=== PATIENT | male | born 1940 | race African-American/Black ===

== ENCOUNTER 2017-07-19 12:14 | Inpatient (IN) | payer OTHER ==
[~2017-07-19] VITALS: Ht 172.7 cm; Wt 65.0 kg
[2017-07-19] VITALS (8 sets, daily range): BP systolic 97–125; BP diastolic 64–78
[2017-07-19 12:57] LABS: microscopic required? YES; urine erythrocyte 3+ (NEGATIVE)
[2017-07-19 13:25] LABS: RED CELL DISTRIBUTION WIDTH 16.7 % (11.5-14.5)
[2017-07-19 13:26] LABS: PLATELET COUNT 459 x10^3mcL (130-400)
[2017-07-19 13:46] LABS: CALCIUM 8.5 mg/dL (8.5-10.1); CARBON DIOXIDE 30.3 mmol/L (21-32); CHLORIDE SERUM 109 mmol/L (98-107); CREATININE SERUM 2.3 mg/dL (0.7-1.3); GLUCOSE SERUM 132 mg/dL (74-106); POTASSIUM SERUM 3.9 mmol/L (3.5-5.1); SODIUM SERUM 149 mmol/L (136-145)
[2017-07-19 13:51] LABS: ALKALINE PHOSPHATASE 75 U/L (46-116); ALT/SGPT 30 U/L (16-63); AST/SGOT 58 U/L (15-37); BILIRUBIN TOTAL 0.4 mg/dL (0.20-1.00)
[2017-07-19 13:55] LABS: ALBUMIN 1.9 g/dL (3.4-5.0); TOTAL PROTEIN, SERUM 9.6 g/dL (6.4-8.2)
[2017-07-19 13:57] LABS: BAND NEUTROPHIL 4 % (0-10); BASOPHIL 0 % (0-2); METAMYELOCTE 4 % (0-2); MONOCYTE 6 % (0-7); MYELOCYTE 2 % (0-2); SEGMENTED NEUTROPHILS 59 % (37-75)
[2017-07-19 14:00] LABS: PLATELET MORPHOLOGY LARGE PLATELET SEEN; rbc morphology (normal/abnorm) NORMAL (NORMAL)
[2017-07-19 14:40] LABS: CK-MB < 0.5 ng/mL (0-3.6); CREATINE KINASE 120 U/L (39-308)
[2017-07-19] MEDS ORDERED: ASPIR LOW81 MG GT (15:00)
[2017-07-19] MEDS ORDERED: BUDESONIDE0.5 MG/2 M NEB (15:01)
[2017-07-19] MEDS ORDERED: BENADRYL ALLERG25 M1 PO (15:01)
[2017-07-19] MEDS ORDERED: CALCIUM 500+D1 EACH NG (15:04)
[2017-07-19] MEDS ORDERED: IPRATROPIUM BROM3 M2 HHN (15:05)
[2017-07-19] MEDS ORDERED: FERL GT (15:06)
[2017-07-19] MEDS ORDERED: HEP5I SC (15:06)
[2017-07-19] MEDS ORDERED: HUMALOG100 U/ML SC (15:07)
[2017-07-19] MEDS ORDERED: PREVACID30 M1 GT (15:07)
[2017-07-19] MEDS ORDERED: TYLENOL325 M1 GT (15:08)
[2017-07-19 16:43] LABS: MAGNESIUM 2.5 mg/dL (1.8-2.4); PHOSPHOROUS 5.7 mg/dL (2.5-4.9)
[2017-07-19 16:45] LABS: CHOLESTEROL/HDL RATIO 5.3
[2017-07-19 16:50] LABS: T3 TOTAL 0.56 ng/mL
[2017-07-19 17:14] LABS: FREE T4 1.3 ng/dL (0.76-1.46); FREE THYROXINE INDEX 1.8 ug/dL (1.4-4.5); T4(THYROXINE) 6.1 ug/dL (4.7-13.3)
[2017-07-20] VITALS (16 sets, daily range): BP systolic 105–123; BP diastolic 63–77
[2017-07-20 05:41] LABS: PLATELET COUNT 383 x10^3mcL (130-400)
[2017-07-20 05:46] LABS: CALCIUM 8.4 mg/dL (8.5-10.1); CARBON DIOXIDE 29.9 mmol/L (21-32); CHLORIDE SERUM 110 mmol/L (98-107); CREATININE SERUM 2.3 mg/dL (0.7-1.3); GLUCOSE SERUM 153 mg/dL (74-106); MAGNESIUM 2.1 mg/dL (1.8-2.4); PHOSPHOROUS 5.8 mg/dL (2.5-4.9); POTASSIUM SERUM 3.9 mmol/L (3.5-5.1); SODIUM SERUM 148 mmol/L (136-145)
[2017-07-20 05:54] LABS: BASOPHIL % 0 % (0-2); RED CELL DISTRIBUTION WIDTH 16.7 % (11.5-14.5)
[2017-07-21] VITALS (20 sets, daily range): BP systolic 101–122; BP diastolic 41–72
[2017-07-21 05:30] LABS: PLATELET COUNT 330 x10^3mcL (130-400)
[2017-07-21 05:56] LABS: CALCIUM 8.1 mg/dL (8.5-10.1); CARBON DIOXIDE 27.6 mmol/L (21-32); CHLORIDE SERUM 108 mmol/L (98-107); CREATININE SERUM 2.3 mg/dL (0.7-1.3); GLUCOSE SERUM 99 mg/dL (74-106); MAGNESIUM 1.9 mg/dL (1.8-2.4); PHOSPHOROUS 4.4 mg/dL (2.5-4.9); POTASSIUM SERUM 3.2 mmol/L (3.5-5.1); SODIUM SERUM 143 mmol/L (136-145)
[2017-07-21 06:16] LABS: BAND NEUTROPHIL 3 % (0-10); MONOCYTE 3 % (0-7); SEGMENTED NEUTROPHILS 83 % (37-75); rbc morphology (normal/abnorm) ABNORMAL (NORMAL)
[2017-07-21 06:18] LABS: PLATELET MORPHOLOGY PLATELETS NORMAL
[2017-07-21 14:16] LABS: BASOPHIL % 0.1 % (0-2); PLATELET COUNT 318 x10^3mcL (130-400)
[2017-07-21 14:21] LABS: RED CELL DISTRIBUTION WIDTH 16.9 % (11.5-14.5)
[2017-07-21 14:30] LABS: rbc morphology (normal/abnorm) ABNORMAL (NORMAL)
[2017-07-21 21:58] LABS: BASOPHIL % 0.3 % (0-2); PLATELET COUNT 333 x10^3mcL (130-400)
[2017-07-21 22:00] LABS: RED CELL DISTRIBUTION WIDTH 15.7 % (11.5-14.5)
[2017-07-22] VITALS (18 sets, daily range): BP systolic 113–144; BP diastolic 64–83
[2017-07-22 05:32] LABS: PLATELET COUNT 319 x10^3mcL (130-400)
[2017-07-22 05:34] LABS: BASOPHIL % 0 % (0-2); RED CELL DISTRIBUTION WIDTH 16.2 % (11.5-14.5)
[2017-07-22 05:49] LABS: CALCIUM 7.6 mg/dL (8.5-10.1); CARBON DIOXIDE 27.5 mmol/L (21-32); CHLORIDE SERUM 108 mmol/L (98-107); GLUCOSE SERUM 105 mg/dL (74-106); PHOSPHOROUS 3.6 mg/dL (2.5-4.9); POTASSIUM SERUM 3.8 mmol/L (3.5-5.1); SODIUM SERUM 142 mmol/L (136-145)
[2017-07-23] VITALS (19 sets, daily range): BP systolic 117–138; BP diastolic 63–77
[2017-07-23 05:39] LABS: PLATELET COUNT 340 x10^3mcL (130-400)
[2017-07-23 05:42] LABS: BASOPHIL % 0 % (0-2); RED CELL DISTRIBUTION WIDTH 15.9 % (11.5-14.5)
[2017-07-23 05:53] LABS: CALCIUM 7.6 mg/dL (8.5-10.1); CARBON DIOXIDE 28.6 mmol/L (21-32); CHLORIDE SERUM 110 mmol/L (98-107); CREATININE SERUM 1.7 mg/dL (0.7-1.3); GLUCOSE SERUM 92 mg/dL (74-106); MAGNESIUM 1.8 mg/dL (1.8-2.4); PHOSPHOROUS 3.3 mg/dL (2.5-4.9); POTASSIUM SERUM 4.1 mmol/L (3.5-5.1); SODIUM SERUM 142 mmol/L (136-145)
[2017-07-24] VITALS (19 sets, daily range): BP systolic 105–135; BP diastolic 63–93
[2017-07-24 05:53] LABS: BASOPHIL % 0.2 % (0-2); PLATELET COUNT 314 x10^3mcL (130-400)
[2017-07-24 06:09] LABS: CALCIUM 7.6 mg/dL (8.5-10.1); CARBON DIOXIDE 25.9 mmol/L (21-32); CHLORIDE SERUM 112 mmol/L (98-107); CREATININE SERUM 1.3 mg/dL (0.7-1.3); GLUCOSE SERUM 105 mg/dL (74-106); MAGNESIUM 1.6 mg/dL (1.8-2.4); PHOSPHOROUS 2.6 mg/dL (2.5-4.9); POTASSIUM SERUM 4.1 mmol/L (3.5-5.1); SODIUM SERUM 143 mmol/L (136-145)
[2017-07-24 15:21] LABS: BASOPHIL % 0.3 % (0-2); PLATELET COUNT 318 x10^3mcL (130-400)
[2017-07-24 16:19] LABS: RED CELL DISTRIBUTION WIDTH 16.1 % (11.5-14.5)
[2017-07-24 17:04] LABS: rbc morphology (normal/abnorm) ABNORMAL (NORMAL)
[2017-07-25] VITALS (18 sets, daily range): BP systolic 113–135; BP diastolic 64–78
[2017-07-25 05:21] LABS: BASOPHIL % 0.2 % (0-2); PLATELET COUNT 316 x10^3mcL (130-400)
[2017-07-25 05:26] LABS: RED CELL DISTRIBUTION WIDTH 16.6 % (11.5-14.5)
[2017-07-25 05:28] LABS: rbc morphology (normal/abnorm) ABNORMAL (NORMAL)
[2017-07-25 05:35] LABS: CALCIUM 7.6 mg/dL (8.5-10.1); CARBON DIOXIDE 26.5 mmol/L (21-32); CHLORIDE SERUM 116 mmol/L (98-107); CREATININE SERUM 1.1 mg/dL (0.7-1.3); GLUCOSE SERUM 97 mg/dL (74-106); MAGNESIUM 1.4 mg/dL (1.8-2.4); PHOSPHOROUS 2.4 mg/dL (2.5-4.9); POTASSIUM SERUM 3.8 mmol/L (3.5-5.1); SODIUM SERUM 146 mmol/L (136-145)
[2017-07-26] VITALS (17 sets, daily range): BP systolic 110–138; BP diastolic 57–83
[2017-07-26 05:05] LABS: BASOPHIL % 0.9 % (0-2); PLATELET COUNT 337 x10^3mcL (130-400)
[2017-07-26 05:10] LABS: CALCIUM 7.4 mg/dL (8.5-10.1); CHLORIDE SERUM 116 mmol/L (98-107); CREATININE SERUM 1.1 mg/dL (0.7-1.3); GLUCOSE SERUM 103 mg/dL (74-106); MAGNESIUM 1.6 mg/dL (1.8-2.4); PHOSPHOROUS 2.4 mg/dL (2.5-4.9); POTASSIUM SERUM 3.8 mmol/L (3.5-5.1); SODIUM SERUM 145 mmol/L (136-145)
[2017-07-26 05:20] LABS: RED CELL DISTRIBUTION WIDTH 16.8 % (11.5-14.5)
[2017-07-26 05:22] LABS: rbc morphology (normal/abnorm) ABNORMAL (NORMAL)
[2017-07-27] VITALS (19 sets, daily range): BP systolic 112–135; BP diastolic 7–78
[2017-07-27 06:00] LABS: CALCIUM 7.9 mg/dL (8.5-10.1); CARBON DIOXIDE 25.7 mmol/L (21-32); GLUCOSE SERUM 92 mg/dL (74-106); MAGNESIUM 1.8 mg/dL (1.8-2.4); PHOSPHOROUS 2.8 mg/dL (2.5-4.9)
[2017-07-27 06:07] LABS: BASOPHIL % 0.9 % (0-2); PLATELET COUNT 352 x10^3mcL (130-400)
[2017-07-27 06:11] LABS: CHLORIDE SERUM 112 mmol/L (98-107); POTASSIUM SERUM 4.1 mmol/L (3.5-5.1); SODIUM SERUM 135 mmol/L (136-145)
[2017-07-28] VITALS (19 sets, daily range): BP systolic 124–142; BP diastolic 66–94
[2017-07-28 04:35] LABS: BASOPHIL % 0.6 % (0-2); PLATELET COUNT 332 x10^3mcL (130-400)
[2017-07-28 04:45] LABS: CALCIUM 7.5 mg/dL (8.5-10.1); CARBON DIOXIDE 25.9 mmol/L (21-32); CHLORIDE SERUM 114 mmol/L (98-107); GLUCOSE SERUM 84 mg/dL (74-106); MAGNESIUM 1.4 mg/dL (1.8-2.4); PHOSPHOROUS 2.9 mg/dL (2.5-4.9); POTASSIUM SERUM 3.9 mmol/L (3.5-5.1); SODIUM SERUM 143 mmol/L (136-145)
[2017-07-28 04:46] LABS: RED CELL DISTRIBUTION WIDTH 18.5 % (11.5-14.5)
[2017-07-28 05:20] LABS: rbc morphology (normal/abnorm) ABNORMAL (NORMAL)
[2017-07-29] VITALS (19 sets, daily range): BP systolic 129–157; BP diastolic 73–88
[2017-07-29 05:30] LABS: PLATELET COUNT 314 x10^3mcL (130-400)
[2017-07-29 05:40] LABS: CALCIUM 7.8 mg/dL (8.5-10.1); CARBON DIOXIDE 27.8 mmol/L (21-32); CHLORIDE SERUM 112 mmol/L (98-107); CREATININE SERUM 0.9 mg/dL (0.7-1.3); GLUCOSE SERUM 88 mg/dL (74-106); MAGNESIUM 1.9 mg/dL (1.8-2.4); PHOSPHOROUS 2.9 mg/dL (2.5-4.9); SODIUM SERUM 144 mmol/L (136-145)
[2017-07-29 05:41] LABS: RED CELL DISTRIBUTION WIDTH 18.8 % (11.5-14.5)
[2017-07-29 05:58] LABS: rbc morphology (normal/abnorm) ABNORMAL (NORMAL)
[2017-07-30] VITALS (17 sets, daily range): BP systolic 98–181; BP diastolic 50–106
[2017-07-30 05:28] LABS: BASOPHIL % 1.3 % (0-2); PLATELET COUNT 289 x10^3mcL (130-400)
[2017-07-30 05:35] LABS: RED CELL DISTRIBUTION WIDTH 18.6 % (11.5-14.5)
[2017-07-30 05:36] LABS: rbc morphology (normal/abnorm) ABNORMAL (NORMAL)
[2017-07-30 05:47] LABS: CALCIUM 7.8 mg/dL (8.5-10.1); CHLORIDE SERUM 111 mmol/L (98-107); CREATININE SERUM 0.9 mg/dL (0.7-1.3); GLUCOSE SERUM 91 mg/dL (74-106); MAGNESIUM 1.6 mg/dL (1.8-2.4); PHOSPHOROUS 3.1 mg/dL (2.5-4.9); POTASSIUM SERUM 3.8 mmol/L (3.5-5.1); SODIUM SERUM 142 mmol/L (136-145)
[2017-07-31] VITALS (16 sets, daily range): BP systolic 112–143; BP diastolic 61–87
[2017-07-31 05:18] LABS: BASOPHIL % 1.3 % (0-2); PLATELET COUNT 313 x10^3mcL (130-400)
[2017-07-31 05:31] LABS: CARBON DIOXIDE 27.2 mmol/L (21-32); CHLORIDE SERUM 107 mmol/L (98-107); CREATININE SERUM 0.8 mg/dL (0.7-1.3); GLUCOSE SERUM 85 mg/dL (74-106); SODIUM SERUM 141 mmol/L (136-145)
[2017-08-01] VITALS (18 sets, daily range): BP systolic 112–148; BP diastolic 65–86
[2017-08-01 05:27] LABS: BASOPHIL % 0.8 % (0-2); PLATELET COUNT 278 x10^3mcL (130-400)
[2017-08-01 05:31] LABS: RED CELL DISTRIBUTION WIDTH 18.8 % (11.5-14.5)
[2017-08-01 05:39] LABS: CALCIUM 8.1 mg/dL (8.5-10.1); CARBON DIOXIDE 27.1 mmol/L (21-32); CHLORIDE SERUM 107 mmol/L (98-107); CREATININE SERUM 0.7 mg/dL (0.7-1.3); GLUCOSE SERUM 84 mg/dL (74-106); POTASSIUM SERUM 3.7 mmol/L (3.5-5.1); SODIUM SERUM 140 mmol/L (136-145)
[2017-08-01 05:50] LABS: rbc morphology (normal/abnorm) ABNORMAL (NORMAL)
[2017-08-01 17:23] LABS: BASOPHIL % 0.3 % (0-2); PLATELET COUNT 279 x10^3mcL (130-400)
[2017-08-01 17:29] LABS: RED CELL DISTRIBUTION WIDTH 17.7 % (11.5-14.5)
[2017-08-02] VITALS (19 sets, daily range): BP systolic 110–141; BP diastolic 68–84
[2017-08-02 05:32] LABS: BASOPHIL % 0.7 % (0-2); PLATELET COUNT 267 x10^3mcL (130-400)
[2017-08-02 05:33] LABS: RED CELL DISTRIBUTION WIDTH 18.3 % (11.5-14.5)
[2017-08-02 05:41] LABS: CALCIUM 7.8 mg/dL (8.5-10.1); CARBON DIOXIDE 30.3 mmol/L (21-32); CHLORIDE SERUM 107 mmol/L (98-107); CREATININE SERUM 0.8 mg/dL (0.7-1.3); GLUCOSE SERUM 85 mg/dL (74-106); POTASSIUM SERUM 3.9 mmol/L (3.5-5.1); SODIUM SERUM 137 mmol/L (136-145)
[2017-08-03] VITALS (20 sets, daily range): BP systolic 116–138; BP diastolic 67–95
[2017-08-03 17:07] LABS: microscopic required? YES; urine erythrocyte 3+ (NEGATIVE)
[2017-08-04] VITALS (18 sets, daily range): BP systolic 112–167; BP diastolic 68–116
[2017-08-04 06:30] LABS: CARBON DIOXIDE 29.6 mmol/L (21-32); CHLORIDE SERUM 105 mmol/L (98-107); CREATININE SERUM 0.7 mg/dL (0.7-1.3); GLUCOSE SERUM 92 mg/dL (74-106); POTASSIUM SERUM 3.5 mmol/L (3.5-5.1); SODIUM SERUM 141 mmol/L (136-145)
[2017-08-04 06:35] LABS: PLATELET COUNT 224 x10^3mcL (130-400)
[2017-08-04 07:17] LABS: RED CELL DISTRIBUTION WIDTH 18.3 % (11.5-14.5)
[2017-08-04 09:05] LABS: rbc morphology (normal/abnorm) ABNORMAL (NORMAL)
[2017-08-05] VITALS (18 sets, daily range): BP systolic 99–151; BP diastolic 59–84
[2017-08-05 08:25] LABS: PLATELET COUNT 265 x10^3mcL (130-400)
[2017-08-05 08:29] LABS: RED CELL DISTRIBUTION WIDTH 18.8 % (11.5-14.5)
[2017-08-05 08:33] LABS: CARBON DIOXIDE 29.9 mmol/L (21-32); CHLORIDE SERUM 103 mmol/L (98-107); CREATININE SERUM 0.7 mg/dL (0.7-1.3); GLUCOSE SERUM 140 mg/dL (74-106); SODIUM SERUM 139 mmol/L (136-145)
[2017-08-05 09:37] LABS: PHOSPHOROUS 4.5 mg/dL (2.5-4.9)
[2017-08-05 09:45] LABS: MAGNESIUM 0.7 mg/dL (1.8-2.4)
[2017-08-05 09:48] LABS: BAND NEUTROPHIL 2 % (0-10); MONOCYTE 5 % (0-7); SEGMENTED NEUTROPHILS 76 % (37-75); rbc morphology (normal/abnorm) ABNORMAL (NORMAL)
[2017-08-06] VITALS (18 sets, daily range): BP systolic 104–140; BP diastolic 58–77
[2017-08-06 02:33] LABS: microscopic required? YES; urine erythrocyte 2+ (NEGATIVE)
[2017-08-06 05:33] LABS: BASOPHIL % 0.3 % (0-2); PLATELET COUNT 225 x10^3mcL (130-400)
[2017-08-06 05:39] LABS: RED CELL DISTRIBUTION WIDTH 18.8 % (11.5-14.5)
[2017-08-06 05:41] LABS: rbc morphology (normal/abnorm) ABNORMAL (NORMAL)
[2017-08-06 05:46] LABS: CALCIUM 7.9 mg/dL (8.5-10.1); CARBON DIOXIDE 30.5 mmol/L (21-32); CHLORIDE SERUM 105 mmol/L (98-107); CREATININE SERUM 0.7 mg/dL (0.7-1.3); GLUCOSE SERUM 98 mg/dL (74-106); MAGNESIUM 1.7 mg/dL (1.8-2.4); PHOSPHOROUS 3.1 mg/dL (2.5-4.9); POTASSIUM SERUM 3.5 mmol/L (3.5-5.1); SODIUM SERUM 137 mmol/L (136-145)
[2017-08-06 09:32] LABS: RED BLOOD CELLS 2.15 M/mm3 (4.52-5.90)
[2017-08-07] VITALS (15 sets, daily range): BP systolic 107–141; BP diastolic 47–78
[2017-08-07 05:31] LABS: BASOPHIL % 0.7 % (0-2); PLATELET COUNT 224 x10^3mcL (130-400)
[2017-08-07 05:37] LABS: RED CELL DISTRIBUTION WIDTH 19.5 % (11.5-14.5)
[2017-08-07 05:39] LABS: rbc morphology (normal/abnorm) ABNORMAL (NORMAL)
[2017-08-07 05:51] LABS: CALCIUM 8.2 mg/dL (8.5-10.1); CARBON DIOXIDE 30.2 mmol/L (21-32); CHLORIDE SERUM 107 mmol/L (98-107); CREATININE SERUM 0.7 mg/dL (0.7-1.3); GLUCOSE SERUM 81 mg/dL (74-106); MAGNESIUM 1.5 mg/dL (1.8-2.4); PHOSPHOROUS 3.2 mg/dL (2.5-4.9); POTASSIUM SERUM 3.4 mmol/L (3.5-5.1); SODIUM SERUM 139 mmol/L (136-145)
[2017-08-07 05:54] LABS: ALBUMIN 1.5 g/dL (3.4-5.0)
[2017-08-08] VITALS (20 sets, daily range): BP systolic 100–133; BP diastolic 53–79
[2017-08-08 05:45] LABS: BASOPHIL % 0.6 % (0-2); PLATELET COUNT 210 x10^3mcL (130-400)
[2017-08-08 05:48] LABS: RED CELL DISTRIBUTION WIDTH 20.6 % (11.5-14.5)
[2017-08-08 05:49] LABS: rbc morphology (normal/abnorm) ABNORMAL (NORMAL)
[2017-08-08 05:50] LABS: CALCIUM 8.1 mg/dL (8.5-10.1); CARBON DIOXIDE 27.4 mmol/L (21-32); CHLORIDE SERUM 110 mmol/L (98-107); CREATININE SERUM 0.8 mg/dL (0.7-1.3); GLUCOSE SERUM 87 mg/dL (74-106); MAGNESIUM 1.7 mg/dL (1.8-2.4); PHOSPHOROUS 3.9 mg/dL (2.5-4.9); POTASSIUM SERUM 4.1 mmol/L (3.5-5.1); SODIUM SERUM 144 mmol/L (136-145)
[2017-08-08 11:27] LABS: BASOPHIL % 0.4 % (0-2); PLATELET COUNT 213 x10^3mcL (130-400); RED CELL DISTRIBUTION WIDTH 17.8 % (11.5-14.5)
[2017-08-08 11:32] LABS: rbc morphology (normal/abnorm) ABNORMAL (NORMAL)
[2017-08-08 14:48] LABS: BASOPHIL % 0.5 % (0-2); PLATELET COUNT 204 x10^3mcL (130-400)
[2017-08-08 15:25] LABS: RED CELL DISTRIBUTION WIDTH 16.4 % (11.5-14.5)
[2017-08-08 15:39] LABS: rbc morphology (normal/abnorm) ABNORMAL (NORMAL)
[2017-08-08 21:04] LABS: BASOPHIL % 0.4 % (0-2); PLATELET COUNT 207 x10^3mcL (130-400)
[2017-08-09] VITALS (14 sets, daily range): BP systolic 112–136; BP diastolic 63–80; Ht 172.7 cm; Wt 65.0 kg
[2017-08-09 05:05] LABS: BASOPHIL % 0.3 % (0-2); PLATELET COUNT 231 x10^3mcL (130-400)
[2017-08-09 05:06] LABS: RED CELL DISTRIBUTION WIDTH 16.5 % (11.5-14.5)
[2017-08-09 05:17] LABS: CARBON DIOXIDE 29.6 mmol/L (21-32); CHLORIDE SERUM 111 mmol/L (98-107); CREATININE SERUM 1.1 mg/dL (0.7-1.3); GLUCOSE SERUM 125 mg/dL (74-106); MAGNESIUM 1.6 mg/dL (1.8-2.4); PHOSPHOROUS 4.4 mg/dL (2.5-4.9); POTASSIUM SERUM 4.1 mmol/L (3.5-5.1); SODIUM SERUM 145 mmol/L (136-145)
[2017-08-10] VITALS (18 sets, daily range): BP systolic 123–147; BP diastolic 55–90
[2017-08-10 05:28] LABS: BASOPHIL % 0.4 % (0-2); PLATELET COUNT 223 x10^3mcL (130-400)
[2017-08-10 05:35] LABS: CARBON DIOXIDE 27.8 mmol/L (21-32); CHLORIDE SERUM 114 mmol/L (98-107); CREATININE SERUM 0.9 mg/dL (0.7-1.3); GLUCOSE SERUM 91 mg/dL (74-106); MAGNESIUM 2.1 mg/dL (1.8-2.4); PHOSPHOROUS 4.1 mg/dL (2.5-4.9); POTASSIUM SERUM 3.9 mmol/L (3.5-5.1); SODIUM SERUM 149 mmol/L (136-145)
[2017-08-10 05:45] LABS: RED CELL DISTRIBUTION WIDTH 17.3 % (11.5-14.5)
[2017-08-11] VITALS (18 sets, daily range): BP systolic 95–148; BP diastolic 58–82
[2017-08-11 05:18] LABS: CALCIUM 8.7 mg/dL (8.5-10.1); CARBON DIOXIDE 28.1 mmol/L (21-32); CHLORIDE SERUM 113 mmol/L (98-107); CREATININE SERUM 0.9 mg/dL (0.7-1.3); GLUCOSE SERUM 64 mg/dL (74-106); MAGNESIUM 1.6 mg/dL (1.8-2.4); PHOSPHOROUS 4.3 mg/dL (2.5-4.9); POTASSIUM SERUM 3.7 mmol/L (3.5-5.1); SODIUM SERUM 151 mmol/L (136-145)
[2017-08-11 05:55] LABS: BASOPHIL % 0.7 % (0-2); PLATELET COUNT 227 x10^3mcL (130-400)
[2017-08-11 06:15] LABS: ALKALINE PHOSPHATASE 57 U/L (46-116); ALT/SGPT 10 U/L (16-63); AST/SGOT 20 U/L (15-37); BILIRUBIN TOTAL 0.48 mg/dL (0.20-1.00); CALCIUM 8.7 mg/dL (8.5-10.1); CHLORIDE SERUM 112 mmol/L (98-107); CREATININE SERUM 0.8 mg/dL (0.7-1.3); GLUCOSE SERUM 64 mg/dL (74-106); POTASSIUM SERUM 3.8 mmol/L (3.5-5.1); SODIUM SERUM 149 mmol/L (136-145); TOTAL PROTEIN, SERUM 7.5 g/dL (6.4-8.2)
[2017-08-11 06:19] LABS: ALBUMIN 1.8 g/dL (3.4-5.0)
[2017-08-11 07:06] LABS: RED CELL DISTRIBUTION WIDTH 17.8 % (11.5-14.5)
[2017-08-12] VITALS (18 sets, daily range): BP systolic 108–131; BP diastolic 61–89
[2017-08-12 05:12] LABS: BASOPHIL % 0.9 % (0-2); PLATELET COUNT 245 x10^3mcL (130-400)
[2017-08-12 05:14] LABS: RED CELL DISTRIBUTION WIDTH 17.6 % (11.5-14.5)
[2017-08-12 05:24] LABS: CALCIUM 8.1 mg/dL (8.5-10.1); CHLORIDE SERUM 111 mmol/L (98-107); CREATININE SERUM 0.9 mg/dL (0.7-1.3); GLUCOSE SERUM 112 mg/dL (74-106); POTASSIUM SERUM 3.6 mmol/L (3.5-5.1); SODIUM SERUM 146 mmol/L (136-145)
[2017-08-13] VITALS (14 sets, daily range): BP systolic 110–143; BP diastolic 67–83
[2017-08-13 05:28] LABS: PLATELET COUNT 259 x10^3mcL (130-400)
[2017-08-13 05:37] LABS: BASOPHIL % 5.3 % (0-2); RED CELL DISTRIBUTION WIDTH 17.4 % (11.5-14.5)
[2017-08-13 05:41] LABS: CALCIUM 8.2 mg/dL (8.5-10.1); CARBON DIOXIDE 29.6 mmol/L (21-32); CHLORIDE SERUM 111 mmol/L (98-107); CREATININE SERUM 0.9 mg/dL (0.7-1.3); GLUCOSE SERUM 100 mg/dL (74-106); PHOSPHOROUS 3.8 mg/dL (2.5-4.9); SODIUM SERUM 147 mmol/L (136-145)
[2017-08-13] MEDS ORDERED: MER500I IV (16:44)
[2017-08-13] MEDS ORDERED: ZES20 PEG (16:45)
[2017-08-13] MEDS ORDERED: NOR5 PEG (16:45)
[2017-08-13] MEDS ORDERED: LASIX20 MG PEG (16:46)
[2017-08-13] MEDS ORDERED: COL100UDC GT (16:47)
[2017-08-13] MEDS ORDERED: PROT40I IV (16:47)
[2017-08-13] MEDS ORDERED: LAC NG (16:48)
[2017-08-13] MEDS ORDERED: MYCP TOP (16:52)
[2017-08-13] MEDS ORDERED: [UNRECOGNIZED DRUG - CODE] TOP (16:53)
[2017-08-13] MEDS ORDERED: MVIL PO (16:53)
[2017-08-13] MEDS ORDERED: VITC PO (16:53)
[2017-08-13] MEDS ORDERED: LEVOTHYROXIN0.025 M2 GT (20:05)
== END 2017-08-13 21:45 | DRG 3 ==
LOC: ED 12:14 → IC 15:42
PROVIDERS: Emergency Medicine; Family Medicine; Family Medicine Sports Medicine; Internal Medicine Infectious Disease; Surgery
PROC: 5A1955Z Respiratory Ventilation, Greater than 96 Consecutive Hours (ICD-10-PCS; 2017-07-19)
PROC: 0BH17EZ Insertion of Endotracheal Airway into Trachea, Via Natural or Artificial Opening (ICD-10-PCS; 2017-07-19)
PROC: 5A12012 Performance of Cardiac Output, Single, Manual (ICD-10-PCS; 2017-07-19)
PROC: 05HM33Z Insertion of Infusion Device into Right Internal Jugular Vein, Percutaneous Approach (ICD-10-PCS; 2017-07-19)
PROC: B543ZZA Ultrasonography of Right Jugular Veins, Guidance (ICD-10-PCS; 2017-07-19)
PROC: 30233N1 Transfusion of Nonautologous Red Blood Cells into Peripheral Vein, Percutaneous Approach (ICD-10-PCS; 2017-07-21)
PROC: 0KBP0ZZ Excision of Left Hip Muscle, Open Approach (ICD-10-PCS; 2017-07-23)
PROC: 0KBN0ZZ Excision of Right Hip Muscle, Open Approach (ICD-10-PCS; 2017-07-23)
PROC: 30233N1 Transfusion of Nonautologous Red Blood Cells into Peripheral Vein, Percutaneous Approach (ICD-10-PCS; 2017-08-01)
PROC: 0DH68UZ Insertion of Feeding Device into Stomach, Via Natural or Artificial Opening Endoscopic (ICD-10-PCS; 2017-08-07)
PROC: 0W3P8ZZ Control Bleeding in Gastrointestinal Tract, Via Natural or Artificial Opening Endoscopic (ICD-10-PCS; 2017-08-08)
PROC: 30233N1 Transfusion of Nonautologous Red Blood Cells into Peripheral Vein, Percutaneous Approach (ICD-10-PCS; 2017-08-08)
PROC: 30233K1 Transfusion of Nonautologous Frozen Plasma into Peripheral Vein, Percutaneous Approach (ICD-10-PCS; 2017-08-09)
PROC: 30233N1 Transfusion of Nonautologous Red Blood Cells into Peripheral Vein, Percutaneous Approach (ICD-10-PCS; 2017-08-09)
PROC: 0B110F4 Bypass Trachea to Cutaneous with Tracheostomy Device, Open Approach (ICD-10-PCS; principal; 2017-08-11 09:00)
DX: A41.9 Sepsis, unspecified organism (principal); J96.01 Acute respiratory failure with hypoxia; J69.0 Pneumonitis due to inhalation of food and vomit; I46.9 Cardiac arrest, cause unspecified; G93.41 Metabolic encephalopathy; N17.0 Acute kidney failure with tubular necrosis; L89.154 Pressure ulcer of sacral region, stage 4; E43 Unspecified severe protein-calorie malnutrition; E87.0 Hyperosmolality and hypernatremia; K91.840 Postprocedural hemorrhage of a digestive system organ or structure following a digestive system procedure; N39.0 Urinary tract infection, site not specified; I42.9 Cardiomyopathy, unspecified; R65.20 Severe sepsis without septic shock; G20 Parkinson's disease; R13.10 Dysphagia, unspecified; B96.5 Pseudomonas (aeruginosa) (mallei) (pseudomallei) as the cause of diseases classified elsewhere; E86.0 Dehydration; I16.0 Hypertensive urgency; L30.8 Other specified dermatitis; N43.41 Spermatocele of epididymis, single; T80.89XA Other complications following infusion, transfusion and therapeutic injection, initial encounter; K80.20 Calculus of gallbladder without cholecystitis without obstruction; N20.0 Calculus of kidney; D64.9 Anemia, unspecified; E03.9 Hypothyroidism, unspecified; E78.2 Mixed hyperlipidemia; Z68.20 Body mass index [BMI] 20.0-20.9, adult; Z79.4 Long term (current) use of insulin; Z79.01 Long term (current) use of anticoagulants; Z79.82 Long term (current) use of aspirin; Z22.322 Carrier or suspected carrier of Methicillin resistant Staphylococcus aureus; Y65.8 Other specified misadventures during surgical and medical care; Y83.3 Surgical operation with formation of external stoma as the cause of abnormal reaction of the patient, or of later complication, without mention of misadventure at the time of the procedure; Y92.230 Patient room in hospital as the place of occurrence of the external cause
CPT/HCPCS: 36556; 36600; 43235; 82962; 83880; 84439; 87046; 87046-59; 94150; 97110-GP; A4628; C9113; J0171; J0330; J1200; J1450; J1610; J1642; J1644; J1885; J1940; J1956; J2001; J2020; J2060; J2185; J2250; J2270; J2310; J2354; J2405; J2543; J2765; J2916; J2930; J3010; J3370; J3475; J3480; J3490; J7030; J7040; J7042; J7050; J7060; J7613; J7620; J7626; J7644; J8597; P9016; P9059; Q0092; Q0163